=== PATIENT | male | born 1975 | race Caucasian/White ===

== ENCOUNTER 2016-08-14 16:20 | Emergency (ER) | payer OTHER ==
[2016-08-14] MEDS ORDERED: OPTIRAY 350 100 ML VIAL HMH IV ONE (16:21)
[2016-08-14] MEDS ORDERED: SODIUM CHLORIDE 0.9% 1,000 ML ONE (20:29)
== END 2016-08-14 22:16 | disposition home or self-care (01) ==
LOC: ER 16:20
CPT/HCPCS: 36415; 74177; 76870; 80053; 81001; 83690; 85025; 96360